=== PATIENT | male | born 1995 | race African-American/Black ===

== ENCOUNTER 2021-01-13 13:56 | Emergency (ER) | payer OTHER ==
[~2021-01-13] VITALS: Ht 185.4 cm; Wt 72.1 kg
[2021-01-13 14:15] LABS: ABSOLUTE NEUTROPHILS 3.6 thou/uL (1.4-8.2); BASOPHILS 0.5 % (0.0-2.0); EOSINOPHILS 2.1 % (0.0-3.0); HEMATOCRIT 39.5 % (42.0-52.0); HEMOGLOBIN 12.5 gm/dL (14.0-18.0); LYMPHOCYTES 51.3 % (24.0-44.0); MCH 23.9 pg (26.0-34.0); MCHC 31.7 g/dL (28.0-37.0); MCV 75.6 fL (80.0-100.0); MONOCYTES 10.7 % (1.0-8.0); PLATELET COUNT 292 thou/uL (150-400); POLYS 35.4 % (36.0-66.0); RBC 5.23 mil/uL (4.50-6.00); RDW 15.4 % (10.5-14.5); WBC 10.1 thou/uL (4.0-11.0)
[2021-01-13 14:26] LABS: URINE BILIRUBIN NEGATIVE (Negative); URINE BLOOD 2+ (Negative); URINE CLARITY CLEAR; URINE COLOR YELLOW; URINE GLUCOSE-RANDOM* NEGATIVE (Negative); URINE KETONES NEGATIVE (Negative); URINE LEUKOCYTES-REFLEX NEGATIVE (Negative); URINE NITRITE-REFLEX NEGATIVE (Negative); URINE PROTEIN (DIPSTICK) NEGATIVE (Negative); URINE UROBILINOGEN 0.2 E.U./dl (0.2-1.0)
[2021-01-13 14:31] LABS: ANION GAP 2 mmol/L (7-16); BUN 8 mg/dL (7-18); CALCIUM 8.1 mg/dL (8.5-10.1); CHLORIDE 107 mmol/L (98-107); CO2 31 mmol/L (21-32); CREATININE 1.1 mg/dL (0.7-1.3); GLUCOSE 203 mg/dL (74-106); POTASSIUM 3.8 mmol/L (3.5-5.1); SODIUM 140 mmol/L (136-145)
[2021-01-13 14:37] LABS: ALBUMIN 3.1 g/dL (3.4-5.0); SALICYLATE < 2.8 mg/dL (2.8-20.0); SGOT 28 U/L (15-37); SGPT 33 U/L (16-63); TOTAL BILIRUBIN 0.2 mg/dL (0.2-1.0); TOTAL PROTEIN 6.1 g/dL (6.4-8.2)
[2021-01-13 14:38] LABS: AMP/METHAMP Negative (Negative); BARBITURATES Negative (Negative); BENZODIAZEPINES Negative (Negative); COCAINE Negative (Negative); METHADONE Negative (Negative); OPIATES Negative (Negative); PCP Negative (Negative)
[2021-01-13 14:44] LABS: AMORPHOUS URATES Moderate /LPF (None Seen); MUCUS None Seen strn/LPF (None Seen); SQUAMOUS 0-3 Few /LPF (0-3)
[2021-01-13 14:46] LABS: BACTERIA-REFLEX None Seen /HPF (None Seen); CASTS None Seen /LPF (None Seen); URINE WBC-REFLEX 0-5 Rare /HPF (0-5)
[2021-01-13 17:57] VITALS: BP 119/63
--- NOTE | 2021-01-14 09:50 | EKG ---
[address] [place] [address] ELECTROCARDIOGRAM REPORT Name: TONI SHAH Room #: [facility] Monika#: [id number] Admission: 01/13/21 Attend Phys: Discharge: 01/13/21 Date of : [birth year] Report #: [id number] [facility] ED Test Date: 2021-01-13 Test Time: 14:07:22 Pat Name: TONI SHAH Department: Room: Gender: Clerk Of Scales: : 1995 Requested By: Nathaniel Bishop Order Number: [id number] MD: Porter Vuong Measurements Intervals [place] Rate: 78 P: 39 NV: 165 QRS: 51 QRSD: 97 T: 34 QT: 385 QTc: 439 Interpretive Statements Sinus rhythm No previous ECG available for comparison Electronically Signed On 01-14-2021 9:49:56 CDT by Porter Vuong [email or web address] <ELECTRONICALLY SIGNED> By: Porter Vuong MD, [facility] 01/14/21 0949 [id number] Porter Vuong MD, FACC /EPI
== END 2021-01-13 17:57 | disposition home or self-care (01) ==
LOC: ER 13:56
PROVIDERS: Emergency Medicine
DX: T40.2X1A Poisoning by other opioids, accidental (unintentional), initial encounter (principal); Z20.822 Contact with and (suspected) exposure to COVID-19; Y92.89 Other specified places as the place of occurrence of the external cause